=== PATIENT | female | born 1985 | race Caucasian/White ===

== ENCOUNTER → 2019-03-19 | Outpatient (CLI) | payer BC ==
--- NOTE | 2019-03-19 15:56 | RADIOLOGY IMAGING REPORT ---
FACILITY: [facility] [place] PATIENT NAME: TI KWOK : [id number] MR: [id number] V: [id number] EXAM DATE: ORDERING PHYSICIAN: XIN ALVES TECHNOLOGIST: Diane Araujo PROCEDURE:BILATERAL BREAST MAMMOGRAM AND ULTRASOUND WITH CAD ASSISTED INTERPRETATION & 3D TOMOSYNTHESIS. COMPARISON:None. INDICATIONS:Bilateral palpable lumps. MAMMOGRAM: VIEWS OBTAINED: Bilateral CC & MLO views. BREAST DENSITY:Heterogeneously dense. MAMMOGRAM FINDINGS: There are 3 masses in the Right breast the largest is in the upper inner quadrant and measures 3.2cm. The mass demonstrates smooth borders. The Left breast demonstrates a mass in the upper outer quadrant posterior 1/3 for depth that measures 1.6cm. The mass demonstrates smooth borders. ULTRASOUND: AREA SCANNED: 12-6 o'clock position of the Right breast. FINDINGS: There is a 3.5 x 3.4 x 1.7cm well circumscribed mass at the 1 o'clock position, which demonstrates smooth undulations and isochoric transmission consist with a fibroadenoma. The mass is wider than it is tall. At the 4 o'clock position, there is a smooth bordered hypoechoic mass that measures 1.0 x 1.0 x 1.1cm and demonstrates isochoric transmission. This is consistent with a benign fibroadenoma. There are several small anechoic cysts also seen. AREA SCANNED: 12-3 o'clock position of the Left breast. FINDING: There is a well circumscribe hypoechoic mass with increased transmission that measures 1.4 x 1.4 x 0.9cm with smooth undulations consistent with a fibroadenoma at the 3 o'clock position, 10cm from the nipple. There is a simple cyst at the 3 o'clock position 10cm from the nipple, and measures 0.8cm. DIAGNOSTIC CATEGORY 3--PROBABLY BENIGN FINDING. RECOMMENDATIONS: 6 MONTH ULTRASOUND FOLLOW-UP OF THE RIGHT BREAST TO CONFIRM STABILITY. 6 MONTH ULTRASOUND FOLLOW-UP OF LEFT BREAST TO CONFIRM STABILITY. IMPRESSION: BIRADS 3: Probably benign finding. 1. Right breast demonstrates 2 solid masses in the medial half, most consistent with benign fibroadenomas. 2. Left breast demonstrates a well circumscribed mass in the outer upper quadrant, most consistent with a benign fibroadenoma. 3. This was discussed with the patient by Dr. Burton. Dictated by: Jarred Burton M.D. on 03/19/2019 at 12:53 Transcribed by: MAY on 03/19/2019 at 15:14 Approved by: Jarred Burton M.D. on 03/19/2019 at 15:51 [facility]
--- NOTE | 2019-03-19 15:56 | RADIOLOGY IMAGING REPORT ---
FAC[facility] PATIENT NAME: TI KWOK : [id number] MR: [id number]: [id number] EXAM DATE: ORDERING PHYSICIAN: XIN ALVES TECHNOLOGIST: Noemy Hobson RDMS(ABD,OBGYN,BR),RVT PROCEDURE:BILATERAL BREAST MAMMOGRAM AND ULTRASOUND WITH CAD ASSISTED INTERPRETATION & 3D TOMOSYNTHESIS. COMPARISON:None. INDICATIONS:Bilateral palpable lumps. MAMMOGRAM: VIEWS OBTAINED: Bilateral CC & MLO views. BREAST DENSITY:Heterogeneously dense. MAMMOGRAM FINDINGS: There are 3 masses in the Right breast the largest is in the upper inner quadrant and measures 3.2cm. The mass demonstrates smooth borders. The Left breast demonstrates a mass in the upper outer quadrant posterior 1/3 for depth that measures 1.6cm. The mass demonstrates smooth borders. ULTRASOUND: AREA SCANNED: 12-6 o'clock position of the Right breast. FINDINGS: There is a 3.5 x 3.4 x 1.7cm well circumscribed mass at the 1 o'clock position, which demonstrates smooth undulations and isochoric transmission consist with a fibroadenoma. The mass is wider than it is tall. At the 4 o'clock position, there is a smooth bordered hypoechoic mass that measures 1.0 x 1.0 x 1.1cm and demonstrates isochoric transmission. This is consistent with a benign fibroadenoma. There are several small anechoic cysts also seen. AREA SCANNED: 12-3 o'clock position of the Left breast. FINDING: There is a well circumscribe hypoechoic mass with increased transmission that measures 1.4 x 1.4 x 0.9cm with smooth undulations consistent with a fibroadenoma at the 3 o'clock position, 10cm from the nipple. There is a simple cyst at the 3 o'clock position 10cm from the nipple, and measures 0.8cm. DIAGNOSTIC CATEGORY 3--PROBABLY BENIGN FINDING. RECOMMENDATIONS: 6 MONTH ULTRASOUND FOLLOW-UP OF THE RIGHT BREAST TO CONFIRM STABILITY. 6 MONTH ULTRASOUND FOLLOW-UP OF LEFT BREAST TO CONFIRM STABILITY. IMPRESSION: BIRADS 3: Probably benign finding. 1. Right breast demonstrates 2 solid masses in the medial half, most consistent with benign fibroadenomas. 2. Left breast demonstrates a well circumscribed mass in the outer upper quadrant, most consistent with a benign fibroadenoma. 3. This was discussed with the patient by Dr. Burton. Dictated by: Jarred Burton M.D. on 03/19/2019 at 12:52 Transcribed by: MAY on 03/19/2019 at 15:12 Approved by: Jarred Burton M.D. on 03/19/2019 at 15:51 [facility]
== END ==
LOC: MAMO 10:58
PROVIDERS: ATTEND Nurse Practitioner
DX: N63.12 Unspecified lump in the right breast, upper inner quadrant (principal)
CPT/HCPCS: 77062; 77066